=== PATIENT | male | born 1980 | race Two or more races ===

== ENCOUNTER 2022-05-28 11:36 | Emergency (ER) | payer BC, OTHER ==
[~2022-05-28] VITALS: Ht 170.2 cm; Wt 77.1 kg
[2022-05-28 11:46] VITALS: BP 135/91
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
[2022-05-28] MEDS ORDERED: BACI/NEOM/POLY B OINT PKT 1 UDPKT PACKET TP ONE (13:00)
[2022-05-28] MEDS ORDERED: BACI/NEOM/POLY B OINT PKT 1 UDPKT PACKET ONE (13:42)
[2022-05-28] MEDS ORDERED: IBUP-1955 PO (13:53)
--- NOTE | 2022-05-28 14:25 | NUR ---
Patient discharged to home in stable condition. Written and verbal after care instructions given. Patient verbalizes understanding of instruction.
== END 2022-05-28 14:25 | disposition home or self-care (01) ==
LOC: ER 11:45
DX: S83.91XA Sprain of unspecified site of right knee, initial encounter (principal); S46.912A Strain of unspecified muscle, fascia and tendon at shoulder and upper arm level, left arm, initial encounter; S09.90XA Unspecified injury of head, initial encounter; I10 Essential (primary) hypertension; Z88.6 Allergy status to analgesic agent; V19.88XA Pedal cyclist (driver) (passenger) injured in other specified transport accidents, initial encounter; Y93.89 Activity, other specified; Y92.89 Other specified places as the place of occurrence of the external cause; Y99.8 Other external cause status
CPT/HCPCS: 73030-TC; 73564-TC